=== PATIENT | male | born 1950 | race Caucasian/White ===

== ENCOUNTER 2016-10-21 14:17 | Inpatient (IN) | payer MEDICARE ==
--- NOTE | 2016-12-08 14:23 | HP ---
DATE OF CLINIC: 12/03/2016 IRMA MICHAEL : 1950 PLANNED PROCEDURE: Right Total Knee Arthroplasty DATE OF PROCEDURE: December 09, 2016 SURGEON: Stanley Breaux M.D. PCP: Dr. Brian Gtz HISTORY OF PRESENT ILLNESS Irma Michael is a 66 year old male. * Medication list reviewed with patient allergy list reviewed with patient. Mr. Cast is in today pre-operatively for his upcoming right total knee arthroplasty with Dr. Breaux on 12/09/16. Patient presents in good spirits and is ready to move forward. He denies recent illness or change in health. He's had severe side effects with several opiate pain medications previously and wants to avoid that. Historically he had a GI bleed and eroded hiatal hernia secondary to oral NSAID use so now avoids them. He used Arixtra, acetaminophen and had success with a femoral nerve block for his prior L TKA with Dr. Zapata and did well. His recent consult with Dr. Breaux follows: 66-year-old male known to me for a previous right knee arthroscopy in 2010. He recently saw [facility] for atraumatic, increasing, lateral and posterolateral knee pain over the last 9 months or so. He has noticed a feeling of "popping and swelling" with a decreased weight-bearing tolerance and exercise tolerance. This is most notable at startup or after being up for a long period. It is difficult with loaded flexion such as ascending and descending stairs. I reviewed his previous arthroscopy notes from 2010. He had grade III lateral compartment changes at that time as well as a lateral meniscal tear. Of note, he is also s/p a contralateral TKA by Dr. Zapata in 2010 from which he has done very well. He has been using Tylenol to help with discomfort. He is unable to tolerate non-steroidal anti-inflammatories given a history of a previous gastric bleed. He has no other significant comorbidities. He is a non-smoker. CURRENT MEDICATION * Vitamin D 1000 UNIT Tablet as directed 0 days, 0 refills PAST MEDICAL/SURGICAL HISTORY Reported: Shoulder Arthroscopy Left revision repair of a large rotator cuff tear and arthroscopic biceps tenotomy 11/27/15 at [facility] with Charles Burns. Medical: A previous fracture left ankle fracture at age 14, history of Arthritis, and orthopedic history Left Knee Score was 86. Surgical / Procedural: Prior surgery L-spine L4/L5 fusion Left shoulder tendon repair Left knee ACL Hernia, replacement of a knee Left Total Knee 01/20/[address] Zapata, Hernia repair, and Carpal Tunnel Surgery Bilateral hands. SOCIAL HISTORY Behavioral: Never smoked. Smoking status: Never smoker. Alcohol: A social drinker 1 or 2 a week. 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 ALLERGIES * Aspirin * Ibuprofen * Naproxen DR Edward Steen Reaction: Asthma/Shortness of Breath, Nausea/Vomiting/Diarrhea, abdominal pain * Percocet Reaction: Asthma/Shortness of Breath, Nausea/Vomiting/Diarrhea, headache, wheezing FAMILY HISTORY 2 children living Cancer Father Osteoarthritis mother Blood clots mother REVIEW OF SYSTEMS Systemic: No fever and no recent weight change. Head: No head symptoms. Cardiovascular: No cardiovascular symptoms. Pulmonary: No pulmonary symptoms. Gastrointestinal: No gastrointestinal symptoms. Psychological: No psychological symptoms. Skin: No skin lesions and no rash. PHYSICAL FINDINGS * Vitals taken 12/03/2016 11:37 am BP-Sitting R 129/72 mmHg 100 - 120/60 - 80 BP Cuff Size Regular Pulse Rate-Sitting 52 bpm 50 - 100 Temp-Oral 97.1 F 96 - 101 Height 66.25 in 64 - 74 Weight 195 lbs 123 - 215 Body Mass Index 31.2 kg/m2 Body Surface Area 1.98 m2 Pain Level 0 Ears, Nose, Throat: * ENT: normal. Lungs: * Clear to auscultation. Cardiovascular: Heart Rate and Rhythm: * Normal. Abdomen: * Normal. Neurological: Motor: * Dominant Hand = Right Hand. Patient is a well-developed, well-nourished male in no acute distress, normal-appearing mood and affect. He has a stiff-legged, antalgic gait more notable at startup and notable as he climbs onto the exam table. On standing he has accentuation of genu valgum. Right knee exam shows an effusion with a significant popliteal cyst. Skin integrity is well-preserved, no wounds, rashes or lesions. He is tender over the lateral jointline, NT medially. Motion is 0-115 degrees. He has 1+ laxity to valgus stress in 30 degrees of flexion, negative drawer. NT in the proximal tibia. Calf is soft and NT. Distal light touch sensation and motor function are grossly intact and symmetric. Pulses are palpable. Gentle rotation of the hip is non-irritable. Contralateral knee shows a well-healed anterior incision, no swelling or effusion. Motion 0-130 degrees with good joint play and alignment. Patella tracks well. TESTS Previous radiographs from 07/09/16 are reviewed with the patient and his . They show near complete lateral joint space loss, medial compartment is relatively well preserved. There are medial and lateral marginal spurring at the patellofemoral articulation. ASSESSMENT * Localized primary osteoarthritis of the right knee DJD, right knee, with valgus deformity and increasing pain and limitation. 5 years post left TKA, clinically doing well. No recent radiographs. PREVIOUS TESTS * Test: URINALYSIS Report Date: 10/01/2016 GLUCOSE NEGATIVE PH,URINE 6.0 SPEC. GRAVITY 1.020 KETONE NEGATIVE NITRITE NEGATIVE BLOOD NEGATIVE BILIRUBIN NEGATIVE APPEARANCE CLEAR PROTEIN NEGATIVE COLOR YELLOW LEUK ESTERASE NEGATIVE UROBILINOGEN NORMAL * Test: CBC WITH DIFF Report Date: 10/01/2016 WBC 5.3 10*3/mL MCV 96.5 fL High RBC 4.92 10*6/uL NEUTROPHILS 63.8 % MCH 32.9 pg High MCHC 34.1 g/dL RDW 11.9 % PLATELET COUNT 168 10*3/mL IMM NEUT % 0.4 % IMM NEUT # 0.0 10*3/mL MONOCYTES 9.1 % BASOPHIL 0.9 % EOSINOPHIL 3.6 % High HCT 47.5 % HGB 16.2 g/L LYMPHOCYTE 22.2 % ANC 3.4 10*3/mL * Test: PROTHROMBIN TIME Report Date: 10/01/2016 PROTIME 10.1 s INR 0.96 * Test: PARTIAL THROMBOPLASTIN TIME Report Date: 10/01/2016 APTT 25.6 s * Test: COMPREHENSIVE METABOLIC PANEL Report Date: 10/01/2016 ALT/SGPT 22 U/L ALBUMIN 4.3 g/dL ALB/GLOB RATIO 2.0 BUN 16 mg/dL BUN/CREAT RATIO 20 CALCIUM 9.5 mg/dL GLUCOSE 80 mg/dL CREATININE 0.8 mg/dL SODIUM 139 meq/L POTASSIUM 4.4 meq/L CHLORIDE 105 meq/L CARBON DIOXIDE 29 meq/L ANION GAP 9 meq/L TOT PROTEIN 6.5 g/dL GLOBULIN 2.2 g/dL Low BILI,TOTAL 0.7 mg/dL AST/SGOT 19 U/L ALK PHOSPHATASE 52 U/L GFR 96 High * Test: MRSA SCREEN Report Date: 10/02/2016 MRSA SCREEN NEGATIVE * Test: MSSA SCREEN Report Date: 10/02/2016 MSSA SCREEN POSITIVE FOR STAPHYLOCOCCUS AUREUS Abnormal THERAPY * Patient fall risk screen negative. * Patient eligible for fall risk assessment. * Patient received fall risk assessment. PLAN * Unilateral primary osteoarthritis, right knee Physical Therapy: [facility] [phone] * OTHER CeleBREX 200 MG CAPS, 1 once a day-TO BE USED FOR AFTER SURGERY, 20 days, 0 refills Arixtra 2.5 MG/0.5ML SOLN, 1 once a day-TO BE USED FOR AFTER SURGERY, 8 days, 0 refills Mupirocin 2 % OINT, apply into each nostril two times a day (morning & night) for 5 days prior to surgery date. NEED TO START ON 12/04/16, 5 days, 0 refills * Total knee arthroplasty -Right Discussed with patient in detail the limitations, expectations as well as risks and possible complications of surgery including, but not limited to wound problems or infection, neurovascular injury, continued knee pain or dysfunction, including the possibility of prosthetic wear or failure over time that may require additional operative or non-operative treatment. Patient also realizes the perioperative risks including risks associated with anesthesia and would like to proceed. A full PAR conference was held, questions and concerns addressed and informed consent was obtained. Patient will be sent from my office for completion of the preoperative workup. Use large reservoir for femoral nerve block anesthetic as patient has numerous opiate allergies. Patient will use Arixtra subcutaneous for 10 days postoperatively for DVT prophylaxis. Patient would like to perform their postop PT at [facility] with right total knee arthroplasty protocol. CARE TEAM Brian Gtz DO [facility] CC: Brian Gtz DO [facility] PT Avinash Jean-Baptiste RS/sg
[2016-12-09] MEDS ORDERED: IV START KIT ONE (07:24)
[2016-12-09] MEDS ORDERED: LACTATED RINGERS 1,000 ML ONE (07:24)
[2016-12-09] MEDS ORDERED: OXYCODONE HCL 10 MG TAB.SR PO ONE ×2 (07:30→08:36)
[2016-12-09] MEDS ORDERED: ONDANSETRON 4 MG/2ML 2 ML VIAL IV ONE (07:30)
[2016-12-09] MEDS ORDERED: TRAMADOL HCL 50 MG TABLET PO ONE (07:30)
[2016-12-09] MEDS ORDERED: CELECOXIB 200 MG CAPSULE PO ONE (07:30)
[2016-12-09] MEDS ORDERED: GABAPENTIN 600 MG TABLET PO ONE (07:30)
[2016-12-09] MEDS ORDERED: POLYMYXIN B SULFATE 500,000 UNITS, BACITRACIN 25,000 UNITS in SODIUM CHLORIDE 3 L IRRIG... IR PRN (07:30)
[2016-12-09] MEDS ORDERED: TRANEXAMIC ACID 1,000 MG in SODIUM CHLORIDE 0.9% 100 ML IV PRN (07:30)
[2016-12-09] MEDS ORDERED: BUPIVACAINE 0.25% (MDV) 24 ML, MORPHINE SULFATE 8 MG, EPINEPHRINE 0.3 MG in SODIUM CHLO... IF PRN (07:30)
[2016-12-09] MEDS ORDERED: CEFAZOLIN SODIUM 2 GRAM DUPLEX 50 ML IV PRN (07:30)
[2016-12-09] MEDS ORDERED: BUPIVACAINE 0.25% (MDV) 20 ML in SODIUM CHLORIDE 0.9% FLUSH 20 ML IF PRN (07:30)
[2016-12-09] MEDS ORDERED: CLONIDINE HCL 0.1 MG/24 HR (7 DAY PATCH) TD SCH (07:30)
[2016-12-09] MEDS ORDERED: FAMOTIDINE 20 MG TABLET PO ONE (07:30)
[2016-12-09] MEDS ORDERED: LIDOCAINE 2% (PRES FREE) 5 ML VIAL ONE (08:12)
[2016-12-09] MEDS ORDERED: PROPOFOL 40 ML IV ONE (08:12)
[2016-12-09] MEDS ORDERED: TRAMADOL HCL 50 MG TABLET ONE (08:36)
[2016-12-09] MEDS ORDERED: CELECOXIB 200 MG CAPSULE ONE (08:37)
[2016-12-09] MEDS ORDERED: FAMOTIDINE 20 MG TABLET ONE (08:37)
[2016-12-09] MEDS ORDERED: ONDANSETRON 4 MG/2ML 2 ML VIAL ONE (08:37)
[2016-12-09] MEDS ORDERED: GABAPENTIN 600 MG TABLET ONE (08:37)
[2016-12-09] MEDS ORDERED: CLONIDINE HCL 0.1 MG/24 HR (7 DAY PATCH) TD ONE (08:37)
[2016-12-09] MEDS ORDERED: ROPIVACAINE 0.5% 30 ML VIAL ONE (08:44)
[2016-12-09] MEDS ORDERED: SPINAL PROCEDURAL TRAY 1 EACH ONE (08:44)
[2016-12-09] MEDS ORDERED: NERVE BLOCK PROCEDURAL TRAY 1 EACH ONE (08:44)
[2016-12-09] MEDS ORDERED: MIDAZOLAM HCL 5 MG/5 ML VIAL ONE (08:52)
[2016-12-09] MEDS ORDERED: FENTANYL 100 MCG/2 ML VIAL ONE ×2 (08:52→13:02)
[2016-12-09] MEDS ORDERED: EPHEDRINE SULFATE UD SYR 25 MG 25 MG/5 ML SYRINGE IV ONE (10:20)
[2016-12-09] MEDS ORDERED: MEPERIDINE 25 MG/ML SYRINGE IV PRN (10:51)
[2016-12-09] MEDS ORDERED: FENTANYL 100 MCG/2 ML VIAL IV PRN (10:51)
[2016-12-09] MEDS ORDERED: HYDRALAZINE HCL 20 MG/1 ML VIAL IV PRN (10:51)
[2016-12-09] MEDS ORDERED: NALOXONE HCL 0.4 MG/ML VIAL IV PRN (10:51)
[2016-12-09] MEDS ORDERED: ATROPINE SULFATE 0.4 MG/1 ML VIAL IV PRN (10:51)
[2016-12-09] MEDS ORDERED: PROMETHAZINE HCL 25 MG/ML VIAL IM PRN (10:51)
[2016-12-09] MEDS ORDERED: LABETALOL HCL 5 MG/ML 20ML VIAL IV PRN (10:51)
[2016-12-09] MEDS ORDERED: HYDROMORPHONE HCL 1 MG/ML SYRINGE IV PRN ×2 (10:51→13:45)
[2016-12-09] MEDS ORDERED: LACTATED RINGERS 1,000 ML IV SCH (11:00)
[2016-12-09] MEDS ORDERED: ON-Q PUMP/ROPIVACAINE 0.2% 450 ML ONE (11:15)
[2016-12-09] MEDS ORDERED: GLYCOPYRROLATE 0.2 MG/ML 1ML VIAL ONE ×3 (11:38→13:10)
[2016-12-09] MEDS ORDERED: PROPOFOL 20 ML IV ONE (11:51)
[2016-12-09] MEDS ORDERED: KETOROLAC TROMETHAMINE 30 MG/ML 1 ML VIAL ONE (12:10)
--- NOTE | 2016-12-09 12:19 | PCMBPN ---
Brief Post Op Note: Date of Procedure: 12/09/16 Preoperative Diagnosis: DJD right knee Postoperative Diagnosis: same Procedure: right TKA Surgeon: Stanley Breaux MD Assist: Abdiaziz (MELY) Anesthesia: spinal/add block (Watson) Findings: valgus knee with lateral>medial wear Condition: stable to PAR Complications: none IV Fluids: 2700 mLs of LR Urine Output: 450 mLs Estimated Blood Loss: 75 mLs Tourniquet Time: ~40 minutes Specimens: none Implants: Journey Drains: none
--- NOTE | 2016-12-09 12:38 | PDOC36 ---
Provider Note Note: postoperative pain management as discussed in clinic may prove challenging. We will plan on utilizing multimodal approach including nerve catheter/block as well as periarticular injections placed at time of surgery. In addition, after discussion with family previously, we will use tramadol as well as oxycodone for breakthrough pain in the hospital setting to get a sense of response. Also , will try short course of celebrex over the next two weeks if tolerated from a GI standpoint
[2016-12-09] MEDS: ON-Q PUMP/ROPIVACAINE 0.2% 450 ML in PREMIX BAG 1 EACH NB PRN (12:43)
--- NOTE | 2016-12-09 13:09 | RAD ---
KNEE RIGHT 1 OR 2 VIEWS COMPARISON: Right knee 4 views, 07/09/2016. Right leg bone length study, 08/29/2016 HISTORY: Immediately postop right total knee arthroplasty for osteoarthritis. VIEWS: Right knee AP and crosstable lateral FINDINGS: Bones: Normal. Joints: Satisfactory appearance of the right total knee arthroplasty. Soft tissue: Normal. IMPRESSION: Satisfactory appearance of the right total knee arthroplasty.
[2016-12-09] MEDS ORDERED: GLYCOPYRROLATE 0.2 MG/ML 1ML VIAL IV ONE (13:12)
[2016-12-09] MEDS ORDERED: ON-Q PUMP/ROPIVACAINE 0.2% 450 ML in PREMIX BAG 1 EACH NB PRN (13:45)
[2016-12-09] MEDS ORDERED: OXYCODONE HCL 5 MG TABLET PO PRN (13:45)
[2016-12-09] MEDS ORDERED: TEMAZEPAM 15 MG CAPSULE PO PRN (13:45)
[2016-12-09] MEDS ORDERED: HYDROXYZINE PAMOATE 25 MG CAPSULE PO PRN (13:45)
[2016-12-09] MEDS ORDERED: CALCIUM CARBONATE 500 MG TAB.CHEW PO PRN (13:45)
[2016-12-09] MEDS ORDERED: PUMP TUBING ONE (14:45)
[2016-12-09] MEDS: D5 1/2NS with 20 mEq KCL 1,000 ML IV SCH ×2 (14:46→23:14)
[2016-12-09] MEDS: ACETAMINOPHEN 500 MG TABLET PO SCH ×2 (15:07→23:10)
[2016-12-09 15:32] VITALS: BMI 29.8
[2016-12-09] MEDS: ONDANSETRON 4 MG/2ML 2 ML VIAL IV PRN (16:39)
[2016-12-09] MEDS: CEFAZOLIN SODIUM 1 GRAM PREMIX 1 G in Premix (D5W) 50 ml 1 EACH IV SCH (18:19)
[2016-12-09] MEDS: DOCUSATE SODIUM 100 MG CAPSULE PO SCH (23:10)
[2016-12-09] MEDS: ASCORBIC ACID 500 MG TABLET PO SCH (23:10)
[2016-12-10] MEDS: KETOROLAC TROMETHAMINE 30 MG/ML 1 ML VIAL IV PRN ×2 (00:01→08:01)
[2016-12-10] MEDS: ONDANSETRON 4 MG/2ML 2 ML VIAL IV PRN ×2 (00:01→08:01)
[2016-12-10] MEDS: CEFAZOLIN SODIUM 1 GRAM PREMIX 1 G in Premix (D5W) 50 ml 1 EACH IV SCH (02:54)
[2016-12-10] MEDS ORDERED: MENTHOL/CETYLPYRD 1 EACH LOZENGE ONE (02:55)
[2016-12-10] MEDS: MENTHOL/CETYLPYRD 1 EACH LOZENGE PO PRN ×2 (02:57→20:43)
[2016-12-10] MEDS: ACETAMINOPHEN 500 MG TABLET PO SCH ×5 (02:57→20:42)
[2016-12-10 06:58] LABS: HEMATOCRIT 38.2 % (32.0-52.0); HEMOGLOBIN 12.5 gm/l (14.0-18.0); MEAN CORPUSCULAR HEMOGLOBIN 32.4 pg (27.0-31.0); MEAN CORPUSCULAR HGB CONC 32.7 g/dl (33.0-37.0); RED CELL DISTRIBUTION WIDTH 11.9 % (11.5-14.5)
[2016-12-10 07:16] LABS: CALCIUM 8.4 mg/dL (8.6-10.3)
[2016-12-10] MEDS ORDERED: REMOVE PATCH 1 EACH UNIT TD SCH (07:30)
[2016-12-10] MEDS: ON-Q PUMP/ROPIVACAINE 0.2% 450 ML in PREMIX BAG 1 EACH NB PRN (07:50)
[2016-12-10] MEDS: D5 1/2NS with 20 mEq KCL 1,000 ML IV SCH ×3 (08:00→16:14)
[2016-12-10] MEDS ORDERED: SCOPOLAMINE 1.5 MG/72 HR 1 EACH PATCH TD SCH (08:00)
[2016-12-10] MEDS: MULTIVITAMINS 1 TAB TABLET PO SCH (08:41)
[2016-12-10] MEDS: DOCUSATE SODIUM 100 MG CAPSULE PO SCH ×3 (08:41→20:43)
[2016-12-10] MEDS: ASCORBIC ACID 500 MG TABLET PO SCH ×3 (08:41→20:43)
--- NOTE | 2016-12-10 08:48 | PDOC43 ---
- Subjective Findings: Ortho POD 1 R TKA Patient awake, A and O times 4 this AM. C/O headache: occipital with some radiation anteriorly. Has also been nauseous. Can keep liquids down but not solids at this point. Denies CP/SOB/NV. Knee pain is well controlled. Motion is very good. No ambulation yet. Subjective: Reports Nausea, Reports Vomiting, Denies Chest Pain, Denies Shortness of Breath, Denies Fever - Objective Vital Signs Temperature 96.8 F 12/10/16 07:22 Pulse Rate 43 12/10/16 07:22 Respiratory Rate 16 12/10/16 07:22 Blood Pressure 101/54 12/10/16 07:22 O2 Saturation by Pulse Oximetry 100 12/10/16 07:22 Oxygen Delivery Method Nasal Cannula Oxygen Flow Rate 2 Laboratory 12/10/16 06:15 12/10/16 06:15 12/10/16 06:15 RBC 3.86 L MCV 99.0 H MCH 32.4 H MCHC 32.7 L Anion Gap 7 L Estimated GFR 96 H Calcium 8.4 L Active Medication Orders Category Date Time Status Acetaminophen [Tylenol] Med 12/09/16 15:00 Active 1,000 mg PO Q6H Ascorbic Acid [Vitamin C] Med 12/09/16 21:00 Active 500 mg PO BID Bisacodyl [Dulcolax] Med 12/12/16 12:22 Active 10 mg [place] DAILY PRN Calcium Carbonate [Tums] Med 12/09/16 13:45 Active 1,000 - 2,000 mg PO Q2H PRN D5 1/2NS with 20 mEq KCL [D51/2NS with 20 mEq KCL] 1, Med 12/09/16 13:45 Active 000 ml IV 125 mls/hr Docusate Sodium [Colace] Med 12/09/16 21:00 Active 100 mg PO BID Fondaparinux Sodium [Arixtra] Med 12/10/16 10:24 Active 2.5 mg SUB-Q Q24H Hydromorphone HCl [Dilaudid] Med 12/09/16 13:45 Active 0.5 - 2 mg IV Q2H PRN Hydroxyzine Pamoate [Vistaril] Med 12/09/16 13:45 Active 25 - 50 mg PO Q4H PRN Ketorolac Tromethamine [Toradol] Med 12/09/16 13:45 Active 30 mg IV Q6H PRN Magnesium Hydroxide [Milk of Magnesia] Med 12/10/16 12:22 Active 30 ml PO DAILY PRN Menthol/Cetylpyridinium [Cepacol] Med 12/10/16 02:56 Active 1 each PO Q2H PRN Multivitamins [One-A-Day] Med 12/10/16 09:00 Active 1 tab PO DAILY On-Q Pump/Ropivacaine 0.2% 450 ml Med 12/09/16 12:59 Active Premix Bag [Premix Fluid] 1 each NB Q50H Ondansetron 4 mg/2ml Vial [Zofran] Med 12/09/16 13:45 Active 4 - 6 mg IV Q6H PRN Oxycodone HCl [Roxicodone] Med 12/09/16 13:45 Active 5 - 10 mg PO Q4H PRN Remove Patch Med 12/10/16 12:22 Once 1 each TD X1 ONE Scopolamine 1.5 mg/72 Hr [Transderm-Scop] Med 12/10/16 08:00 Ordered 1 each TD Q72H Sodium Chloride 0.9% Flush [Normal Saline 10ml Flush] Med 12/09/16 13:45 Active 10 - 50 ml IV PRN PRN Sodium Chloride 0.9% Flush [Normal Saline 10ml Flush] Med 12/09/16 17:00 Active 10 ml IV Q8HR Temazepam [Restoril] Med 12/09/16 13:45 Active 15 mg PO BEDTIME PRN Tramadol HCl [Ultram] Med 12/09/16 19:30 Active 50 mg PO Q6H PRN Intake and Output 12/08/16 12/09/16 12/10/16 23:59 23:59 23:59 Intake Total 4281 1448 Output Total 1350 1850 Balance 2931 -402 Neurological: No Normal Gait (ambulating with walker post R TKA) Peripheral Pulses: Right Posterior Tibialis: 1+, Right Dorsalis Pedis: 1+ - Right Lower Extremity Incision: No Dressing Saturated, No Shadow Drainage, No Drainage, No Erythema, No Rash, No Edgardo Intact (none) Motor: Extensor Hallucis Longus: 5/5, Tibialis Anterior: 5/5, Gastrocnemius: 4/5 , Peroneals: 5/5, Quadriceps: 4/5 Gross Sensation to Light Touch: Present: Deep Peroneal Nerve, Superficial Peroneal Nerve, Medial Plantar Nerve, Lateral Plantar Nerve, Sural Nerve, Saphenous Nerve Motion: Ortho POD 1 R TKA, doing reasonably well, Headache and nausea post spinal, opiate/NSAID sensitivities 1. Anticoagulation: Arixtra 2.5mg subcutaneously for 10 days, pneumatic compression, TEDS, mobility. 2. Pain management as written: Minimize opiates. Call for modifications. Can refill Fem Nerve cath resevoir prior to discharge and focus on pain management with acetaminophen, Celebrex, and bupivicaine (reservoir) 3. Nausea: Scopolamine patch per pharmacy 4. Headache: Trial supine position. 5. PT/OT daily post R TKA, WBAT. Caution with headache, nausea. Patient currently performing excellent motion and strength.
[2016-12-10] MEDS ORDERED: CELECOXIB 200 MG CAPSULE PO SCH (09:00)
[2016-12-10] MEDS: FONDAPARINUX SODIUM 2.5 MG/0.5 ML SYRINGE SUB-Q SCH ×2 (11:45→16:31)
[2016-12-10] MEDS ORDERED: REMOVE PATCH 1 EACH UNIT TD ONE (12:22)
[2016-12-10] MEDS ORDERED: MAGNESIUM HYDROXIDE 30 ML UDCUP PO PRN (12:22)
[2016-12-10] MEDS ORDERED: KETOROLAC TROMETHAMINE 30 MG/ML 1 ML VIAL IV PRN (14:00)
[2016-12-10 15:33] LABS: CALCIUM 8.6 mg/dL (8.6-10.3)
[2016-12-10] MEDS ORDERED: FONDAPARINUX SODIUM 2.5 MG/0.5 ML SYRINGE SUB-Q SCH (16:00)
[2016-12-10] MEDS: TRAMADOL HCL 50 MG TABLET PO PRN (20:43)
[2016-12-11] MEDS: D5 1/2NS with 20 mEq KCL 1,000 ML IV SCH (00:29)
[2016-12-11] MEDS: ACETAMINOPHEN 500 MG TABLET PO SCH ×2 (04:09→09:03)
[2016-12-11] MEDS: TRAMADOL HCL 50 MG TABLET PO PRN ×2 (04:10→10:02)
[2016-12-11 06:36] LABS: HEMATOCRIT 33.3 % (32.0-52.0)
[2016-12-11 07:35] VITALS: BP 130/77
[2016-12-11] MEDS: DOCUSATE SODIUM 100 MG CAPSULE PO SCH (09:02)
[2016-12-11] MEDS: MULTIVITAMINS 1 TAB TABLET PO SCH (09:03)
[2016-12-11] MEDS: ASCORBIC ACID 500 MG TABLET PO SCH (09:03)
--- NOTE | 2016-12-11 09:38 | PDOC43 ---
- Subjective Findings: Ortho POD 2 R TKA Patient awake, A and O times 4 this am and feeling much better. States his headache has resolved and he's been eating without nausea. Knee pain more notable but well controlled. No other c/o. Denies CP/SOB/NV. Taking a regular diet and positive flatus. Continues with asymptomatic/chronic bradycardia. States he wants to go home today. Subjective: Denies Chest Pain, Denies Shortness of Breath, Denies Nausea, Denies Vomiting, Denies Fever - Objective Vital Signs Temperature 97.6 F 12/11/16 07:34 Pulse Rate 48 12/11/16 07:34 Respiratory Rate 17 12/11/16 07:56 Blood Pressure 130/77 12/11/16 07:34 O2 Saturation by Pulse Oximetry 97 12/11/16 07:34 Oxygen Delivery Method Room Air Oxygen Flow Rate 0 Laboratory 12/11/16 06:15 12/10/16 15:00 12/10/16 15:00 Estimated GFR 96 H Active Medication Orders Category Date Time Status Acetaminophen [Tylenol] Med 12/09/16 15:00 Active 1,000 mg PO Q6H Ascorbic Acid [Vitamin C] Med 12/09/16 21:00 Active 500 mg PO BID Bisacodyl [Dulcolax] Med 12/12/16 12:22 Active 10 mg [place] DAILY PRN Calcium Carbonate [Tums] Med 12/09/16 13:45 Active 1,000 - 2,000 mg PO Q2H PRN Docusate Sodium [Colace] Med 12/09/16 21:00 Active 100 mg PO BID Fondaparinux Sodium [Arixtra] Med 12/10/16 16:00 Active 2.5 mg SUB-Q Q24H Hydroxyzine Pamoate [Vistaril] Med 12/09/16 13:45 Active 25 - 50 mg PO Q4H PRN Ketorolac Tromethamine [Toradol] Med 12/10/16 14:00 Active 30 mg IV Q6H PRN Magnesium Hydroxide [Milk of Magnesia] Med 12/10/16 12:22 Active 30 ml PO DAILY PRN Menthol/Cetylpyridinium [Cepacol] Med 12/10/16 02:56 Active 1 each PO Q2H PRN Multivitamins [One-A-Day] Med 12/10/16 09:00 Active 1 tab PO DAILY On-Q Pump/Ropivacaine 0.2% 450 ml Med 12/09/16 12:59 Active Premix Bag [Premix Fluid] 1 each NB Q50H Ondansetron 4 mg/2ml Vial [Zofran] Med 12/09/16 13:45 Active 4 - 6 mg IV Q6H PRN Oxycodone HCl [Roxicodone] Med 12/09/16 13:45 Active 5 - 10 mg PO Q4H PRN Scopolamine 1.5 mg/72 Hr [Transderm-Scop] Med 12/10/16 08:00 Active 1 each TD Q72H Sodium Chloride 0.9% Flush [Normal Saline 10ml Flush] Med 12/09/16 13:45 Active 10 - 50 ml IV PRN PRN Sodium Chloride 0.9% Flush [Normal Saline 10ml Flush] Med 12/09/16 17:00 Active 10 ml IV Q8HR Temazepam [Restoril] Med 12/09/16 13:45 Active 15 mg PO BEDTIME PRN Tramadol HCl [Ultram] Med 12/09/16 19:30 Active 50 mg PO Q6H PRN Intake and Output 12/09/16 12/10/16 12/11/16 23:59 23:59 23:59 Intake Total 4281 2048 3621 Output Total 1350 3700 700 Balance 2931 -1652 2921 Neurological: No Normal Gait (ambulating with a walker post R TKA) Peripheral Pulses: Right Posterior Tibialis: 1+, Right Dorsalis Pedis: 1+ - Right Lower Extremity Incision: Well Approximated (with a sub Q closure, skin glue and mesh, moderate knee edema, thigh and calf are SNT.), No Dressing Saturated, No Shadow Drainage , No Drainage, No Erythema, No Rash Motor: Extensor Hallucis Longus: 5/5, Tibialis Anterior: 5/5, Gastrocnemius: 5/5 , Peroneals: 5/5, Quadriceps: 4/5 Gross Sensation to Light Touch: Present: Deep Peroneal Nerve, Superficial Peroneal Nerve, Medial Plantar Nerve, Lateral Plantar Nerve, Sural Nerve, Saphenous Nerve Motion: Supine AROM R Knee 0-110, SLR without assist. Ankle full AROM. - Problems (1) Status post total right knee replacement Status: AcuteAssessment/Plan: Ortho POD 2 R TKA patient doing well, headache and nausea resolved. 1. Continue: Anticoagulation with Arixtra for 10 days post-op, pneumatic compression, TEDS, and mobility. 2. Continue: Pain management: Femoral nerve block currently at 12 cc/hr with reservoir to be replaced prior to discharge. Patient very sensitive to opiate and conventional NSAIDs therefore will be using the FNC anesthetic, Celebrex and Tylenol primarily for pain control. 3. Continue: PT/OT BID post R TKA WBAT. If patient meets criteria may discharge home today. 4. Bradycardia: Sinus and asymptomatic/chronic for the patient. 5. Surgical blood loss anemia: asymptomatic. 6. Discharge home today after PT/OT if meets criteria. 7. Follow-up with Dr. Breaux as scheduled.
[2016-12-11] MEDS: ON-Q PUMP/ROPIVACAINE 0.2% 450 ML in PREMIX BAG 1 EACH NB PRN (09:40)
--- NOTE | 2016-12-11 13:56 | OP ---
IRMA GREENE [id number] : 1950 DATE OF SURGERY: December 09, 2016 PREOPERATIVE DIAGNOSIS: Degenerative joint disease right knee POSTOPERATIVE DIAGNOSIS: Same PROCEDURE: Right Total Knee Arthroplasty COMPONENTS: Journey size 5 BCS Oxinium cemented femoral component, size 5 cemented tibial base plate, 9mm BCS cross-linked polyethylene articular insert, 35mm resurfacing patella. SURGEON: Stanley Breaux M.D. RESTAURANT ATTENDANT: Abdiaziz B[place]) ANESTHESIA: Spinal plus adductor nerve block per [facility] ESTIMATED BLOOD LOSS: 75 cc IV FLUID REPLACEMENT: per anesthesia, 2.7 liters crystalloid. URINE OUTPUT: 50 cc DRAINS: None TOURNIQUET TIME: Approximately 40 minutes COMPLICATIONS: None HISTORY: Briefly, patient is a 66-year-old male with clinical and radiographic evidence of advanced degenerative disease of their right knee. They have failed traditional non-operative management and desire elective total knee arthroplasty. For additional details, please refer to the previously dictated Preoperative History and Physical Examination. A PAR conference was held, questions and concerns were addressed, and informed consent was obtained. FINDINGS: Tricompartmental changes more notable posterolateral joint in the tibial and femoral side. PROCEDURE: The patient was taken to the operating room after the placement of a spinal anesthetic and regional nerve block. They were placed supine on the operating room table, a tourniquet was applied to the proximal thigh and the right lower extremity was prepped and draped out in the usual sterile fashion. Preoperative IV antibiotics were given empirically. Intraoperative DVT prophylaxis consisted of contralateral foot pumps. Personal filtration suits were used as was a closed room environment. A WHO timeout was taken. Surgical site was identified and confirmed. The leg was then elevated and the tourniquet inflated after gravity exsanguination. This was released after initial exposure and not utilized again until cementation. Tranexamic acid was infiltrated over 10 minutes prior to incision, 1 gram dose per protocol. A similar 2nd dose was given at initiation of closure. With the knee flexed, an anteromedial incision was made from the level of the tibial tubercle to two centimeters proximal to the superior pole of the patella. A medial arthrotomy was performed with a mini-mid vastus approach. A medial subperiosteal proximal tibial release was performed and a portion of the anterior fat pad was excised to improve visualization. The supra-patellar pouch was raised subperiosteally. The anterior and posterior cruciate ligaments were excised as were the remaining portions of the anterior horns of the medial and lateral menisci. Minimally invasive instrumentation and philosophy were used throughout the procedure in an attempt to decrease the extent of soft tissue disruption/damage. Patient matched cutting blocks were also used as per our preoperative plan. The [employer] patient matched distal femoral cutting block was applied and secured to the bone. We confirmed that the alignment matched our preoperative plan and made the distal femoral cut. We confirmed the size of the femur and placed the appropriate 5-in-1 cutting block making our anterior and posterior condylar cuts followed by the chamfer cuts. Residual marginal osteophytes were removed. Attention was then directed to the tibia which was retracted anteriorly. Remaining meniscal tissue was excised. The [employer] patient matched tibial block was then positioned and secured to bone. Alignment was confirmed as per our preoperative plan and the proximal tibial cut made. The tibia was sized and we passed the 11 mm. punch. We then balanced the flexion and extension gaps by performing a limited posterior capsular release. Patient had a large popliteal cyst that spontaneously decompressed during the procedure. We confirmed hemostasis. We then completed the femoral preparation by reaming and chiseling the notch. Femoral and tibial trial components were placed. We were able to obtain full extension with nice roll back and good coronal plane alignment and stability. The patella tracked well and was prepared using the Kenan patellar reaming system removing 9 mm. of bone. Osteophytes were removed prior to this with a rongeur and we performed a circumferential limited denervation using cautery. This was sized accordingly and punch holes were drilled. We marked our tibial rotation and removed the trial components after passing the cruciform tibial punch. The knee was then re-exsanguinated and the tourniquet inflated. Double antibiotic pulsatile lavage was used to irrigate the knee and clean the cancellous henrry interstices which were then carefully dried. Periarticular injection was done at this point per protocol of the posterior capsule, posteromedial knee and synovium. Two doses of high viscosity, methylene blue-stained, antibiotic impregnated polymethylmethacrylate were used to cement the tibial, femoral, and then patellar components. The knee was held in extension while the cement cured. All residual methacrylate was meticulously removed. Attention was then directed towards closure. We irrigated and the retinaculum was closed with a running #2 absorbable Strato-Fix suture. A second periarticular injection was done at this point per protocol. The repair was checked in maximum flexion. We then lightly irrigated the subcutaneous tissue and closed with interrupted 2-0 and 3-0 Vicryl Plus. The skin was then reapproximated with a subcuticular 4-0 Monocryl followed by Dermabond Prineo. A sterile compression dressing was applied. The patient was then transferred to their hospital bed and sent to the post anesthesia recovery room in stable condition. They tolerated the procedure well. Sponge, instrument, and needle count were correct. CC: [facility]
[2016-12-12] MEDS ORDERED: BISACODYL 10 MG SUP PR PRN (12:22)
--- NOTE | 2016-12-15 17:28 | DS ---
Kulwinder GREENE [id number] : 1950 DATE OF ADMISSION: December 09, 2016 DATE OF DISCHARGE: December 11, 2016 DISCHARGE DIAGNOSES: Right knee degenerative joint disease. HOSPITAL PROCEDURES: Right total knee arthroplasty. SURGEON: Stanley Breaux M.D. BRIEF HISTORY: Patient is a 66-year-old male with both clinical and radiographic evidence of advanced DJD of their right knee. For the full history please see the chart note. BRIEF HOSPITAL COURSE: Patient was admitted on December 09, 2016. Dr. Stanley Breaux performed a right total knee arthroplasty. They were moved to the recovery room in stable condition. They were given 4 doses of antibiotic for empiric coverage. DVT prophylaxis consisted of Arixtra 2.5 mg subcutaneously daily for 10 days, pneumatic fraction, INDU hose and mobility. PT was held on postop day 1 secondary to headache with concern for a possible anesthesia. The patient however did very well after lying flat for several hours, was able to consume food without the resume his PT on postoperative day number 2 with right total knee arthroplasty protocol, weightbearing as tolerated. He did excellent in postoperative day number 2 PT. He had very good pain control. Their incision site remained benign, their vital signs remained stable and they remained neurally and vascularly intact through the duration of the stay. They were discharged home on postop day 2 to continue their outpatient PT at [facility] in [place] with right total knee arthroplasty protocol, weightbearing as tolerated. DISCHARGE INSTRUCTIONS: 1. Keep the wound site clean. May shower with Aquacel dressing intact. Call office with any questions or concerns and f/u for your dressing change as scheduled 1 week postop. 2. Continue the use of INDU hose bilaterally. 3. Cooling unit 3-4 times daily for 30 minutes duration. 4. Outpatient PT at [facility] in [place] for right total knee arthroplasty protocol, weightbearing as tolerated. MEDICATIONS: 1. Patient is to resume normal preop medications. 2. Anti-coagulation will be with Arixtra 2.5 mg subcutaneously daily for 10 days. 3. This patient is severely opiate and then said sensitive. He was sent home with his bupivacaine reservoir refilled so that he may continue his femoral nerve block anesthetic for the next three days. 4. Acetaminophen 500 mg every four hours. 5. Celebrex 200 mg by mouth daily which could be increased to 400 mg total as needed. 6. Tramadol 50 mg every six hours. 7. Patient was also advised on utilization of a multi-vitamin with mineral daily as well as Vitamin C, 500mg daily for 1 month. 8. Patient encouraged to take an iron supplement in the form of ferrous sulfate, 325mg daily for 4 weeks. 9. Colace, 100mg, b.i.d. until regular bowel movement. FOLLOW-UP: Please return to the clinic as scheduled for your first scheduled postop check. Prior to that point in time please call with any questions or concerns. Job [id number] CC: [place] Domenico Gtz D.O. [facility] [place]
== END 2016-12-11 10:40 | disposition home or self-care (01) | DRG 470 ==
LOC: OR 12-09 06:56 → MS 12-09 14:00
PROVIDERS: ADMIT Orthopaedic Surgery; ATTEND Orthopaedic Surgery
PROC: 0SRC0J9 Replacement of Right Knee Joint with Synthetic Substitute, Cemented, Open Approach (ICD-10-PCS; principal; 2016-12-09)
DX: M17.11 Unilateral primary osteoarthritis, right knee (principal); D62 Acute posthemorrhagic anemia; M21.061 Valgus deformity, not elsewhere classified, right knee; R51 Headache; R11.0 Nausea; Z88.6 Allergy status to analgesic agent; Z88.5 Allergy status to narcotic agent; R00.1 Bradycardia, unspecified; Z96.652 Presence of left artificial knee joint; Z87.19 Personal history of other diseases of the digestive system; Z22.321 Carrier or suspected carrier of Methicillin susceptible Staphylococcus aureus